=== PATIENT | female | born 1955 | race Caucasian/White ===

== ENCOUNTER 2021-07-13 09:43 | Emergency (ER) | payer MEDICARE, OTHER, SELFPAY ==
--- NOTE | ~2021-07-13 | CT_ITS ---
EXAMINATION: CT abdomen pelvis w con DATE: 07/13/2021 13:00 INDICATION: Sclerotic lesion in left parasymphyseal pubis. TECHNIQUE: Computed tomography (CT) of the abdomen and pelvis was performed with 100 mL Omnipaque 350 intravenous contrast. Automated exposure control and iterative reconstruction technique were employe d. The dose-length product was 957.81 mGy-cm. COMPARISON: Pelvis radiograph 07/13/2021 FINDINGS: The visualized portions of the lung bases demonstrate mild atelectasis. No pleural effusion . There are size is normal. There are coronary artery calcifications. No pericardial effusion. The li anju, spleen, pancreas, adrenal glands, and right kidney are normal. There are cysts in left kidney me asuring up to 9 mm. There is diverticulosis of the colon without evidence of diverticulitis. There ar e no dilated loops of bowel. The appendix is normal. There are no pathologically enlarged lymph nodes . There is no free intraperitoneal fluid. There is a 13 mm nonaggressive lytic lesion with sclerotic margin in right femoral neck, likely benign. There is sclerosis in left parasymphyseal pubis. There i s a lytic lesion with thickened septa in left parasymphyseal pubis superior to the sclerotic lesion, consistent with a hemangioma. There are multiple old healed anterior rib fractures bilaterally. IMPRESSION: 1. 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 Reviewed, dictated and finalized at location A. IMPRESSION: 1. 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
--- NOTE | ~2021-07-13 | XR_ITS ---
EXAMINATION: XR hip RT min 3V w AP pelvis DATE: 07/13/2021 12:05 INDICATION: Right hip pain. TECHNIQUE: An anteroposterior view of the pelvis and 3 views of right hip were obtained. COMPARISON: None. FINDINGS: Bone alignment is normal. No fracture. There is an 18 mm nonaggressive lytic lesion with sc lerotic margin in right femoral neck, likely a benign lesion such as fibrous dysplasia or an intraoss eous lipoma. There is sclerosis in left parasymphyseal pubis. There is mild osteoarthritis of the hip s. There is severe lower lumbar spondylosis. IMPRESSION: 1. Mild osteoarthritis of the hips. 2. Sclerosis in left parasymphyseal pubis, which may be asymmetric degenerative change (osteitis pubi s), a healing fracture, or metastatic disease. Consider pelvis CT or bone scan. Reviewed, dictated and finalized at location A. IMPRESSION: 1. Mild osteoarthritis of the hips. 2. Sclerosis in left parasymphyseal pubis, which may be asymmetric degenerative change (osteitis pubis), a healing fracture, or metastatic disease. Consider p sheba CT or bone scan.
[2021-07-13 09:56] VITALS: BP 141/92; PULSE 70; RESP 16; TEMP 36.6; O2SAT 97
[2021-07-13 11:18] VITALS: BP 148/80; PULSE 67; RESP 18; O2SAT 100
--- NOTE | 2021-07-13 11:41 | ED.EXTPRO ---
HPI - Extremity Problem General Chief complaint: Extremity Problem,Nontraumatic Stated complaint: hip pain Time Seen by Provider: 07/13/21 11:24 Source: patient History of Present Illness HPI Narrative: Patient presents with low back hip and knee pain. Patient for she has had pain for the past week and is progressively been getting worse so she came in for evaluation. Pain is achy, constant, worse with sitting upright and attempting to walk starts in her right lower back and radiates down to her right knee. Sure she has had back strains in the past but this feels more severe. She denies any numbness, tingling, or weakness. She denies any history of IV drug use or known cancer she she denies any major trauma denies any major change in weight she denies any loss of bowel or bladder control. Related Data Allergies Allergy/AdvReac Type Severity Reaction Status Date / Time Sulfa (Sulfonamide Allergy Unknown Verified 03/11/16 09:41 Antibiotics) sulfur dioxide Allergy Unknown Verified 12/20/11 14:12 Review of Systems Review of Systems: CONSTITUTIONAL: Denies fever, chills, or sweats. EYES: Denies visual changes, redness, or discharge. ENT: Denies rhinorrhea, congestion, sore throat, or otalgia. CARDIOVASCULAR: Denies chest pain, palpitations, or edema. RESPIRATORY: Denies cough or dyspnea. GASTROINTESTINAL: Denies abdominal pain, nausea, vomiting, or diarrhea. GENITOURINARY: Denies dysuria or hematuria. SKIN: Denies rash or itching. MUSCULOSKELETAL: Denies joint pain, or myalgia. NEUROLOGIC: Denies headache, numbness, dizziness, or weakness. PSYCHIATRIC: Denies anxiety or depression. All systems reviewed & are unremarkable except as noted in HPI and below PMFSH Social History Social History Smoking status: Never smoker Alcohol intake: never Exam Narrative: GENERAL: Well-appearing, well-nourished, and in no acute distress. HEAD: Normocephalic, atraumatic. EYES: PERRLA and EOMI. ENT: Nares clear, no rhinorrhea or epistaxis. Mucous membranes moist. NECK: Supple. No masses. No JVD Back: Diffuse tenderness to the right paraspinal lumbar area EXTREMITIES: Limited range of motion of the right hip due to pain there is diffuse tenderness on the hip there is no obvious deformity shortening or internal rotation. 5 out of 5 strength on dorsi/plantarflexion of the bilateral lower extremities sensation intact to light touch in the bilateral lower extremities. No edema. SKIN: Warm, dry, no rash. NEURO: No focal deficits. Alert and oriented x3. PSYCH: Normal mood and affect. Course Reevaluation(s) Reevaluation #1: Patient reports feeling improved results and plan reviewed with patient. Patient comfortable with outpatient plan. Date: 07/13/21 Time: 13:27 Vital Signs Vital signs: Vital Signs Temperature 36.6 C 07/13/21 09:56 Pulse Rate 70 07/13/21 09:56 Respiratory Rate 16 07/13/21 09:56 Blood Pressure 141/92 H 07/13/21 09:56 Pulse Oximetry 97 07/13/21 09:56 Temperature 36.6 C 07/13/21 09:56 Pulse Rate 67 07/13/21 11:18 Respiratory Rate 18 07/13/21 11:18 Blood Pressure 148/80 H 07/13/21 11:18 Pulse Oximetry 100 07/13/21 11:18 MDM - Extremity (Nontraumatic) MDM Narrative Medical decision making narrative: H&P as above, vss, pt looks clinically well, exam with out focal neurological deficits, imaging with arthritis otherwise clinically unremarkable additional labs/img considered, symptomatic relief available as needed, patient was treated with Toradol. On reevaluation pt continues to looks clinically well reports some improvement in symptoms. Suspect sciatica, dns cauda equina, conus medullaris, fracture, dislocation. plan to tx/monitor as op w/ pcm f/u findings/plan discussed with pt, pt agree/comfortable with plan, return precautions given Imaging Data Radiologist's impression: Impressions Hip/Pelvis X-Ray 07/13/21 12:06 IMPRESSI
[2021-07-13] MEDS: KETOROLAC 15 MG/ML VIAL (*BKC) IV PUSH (12:17)
[2021-07-21 10:44] LABS: Estimated CRCL calculation 94 ml/min; Estimated Glomerular Filt Rate > 60
== END 2021-07-13 13:53 | disposition home or self-care (01) ==
PROVIDERS: Emergency Provider Emergency Medicine; PCP Family Medicine Adolescent Medicine
DX: M54.41 Lumbago with sciatica, right side (principal)
CPT/HCPCS: 73502; 74177; 96374; 99284; J1885; Q9967

== ENCOUNTER 2021-09-14 11:09 | Outpatient (CLI) | payer MEDICARE, OTHER, SELFPAY ==
--- NOTE | ~2021-09-14 | XR_ITS ---
EXAMINATION: XR chest 2V DATE: 09/14/2021 11:36 INDICATION: Lumbar radiculopathy TECHNIQUE: PA and lateral views of the chest are obtained. COMPARISON: 07/03/2017 FINDINGS: The lungs are free of acute opacities. There is no pleural effusion or pneumothorax. The ca rdiomediastinal silhouette is normal. There is mild thoracic spondylosis. IMPRESSION: 1. No acute cardiopulmonary abnormality. Reviewed, dictated and finalized at location A.
== END 2021-09-14 11:10 | disposition home or self-care (01) ==
LOC: ANHIMG 11:19
PROVIDERS: PCP Family Medicine Adolescent Medicine; Visit Provider Family Medicine Adolescent Medicine
DX: M54.16 Radiculopathy, lumbar region (principal); Z01.818 Encounter for other preprocedural examination
CPT/HCPCS: 71046

== ENCOUNTER 2021-12-31 00:29 | Day surgery (SDC) | payer MEDICARE, OTHER, SELFPAY ==
[2021-12-17 15:16] VITALS: BMI 33.0
--- NOTE | 2021-12-30 09:09 | WPDANESEPPF ---
Anes - Initial Pre Proc Eval Procedure: Operation Date: 12/31/21 07:30 Proposed Procedures p Screening Colonoscopy - Tarun Mayes MD Date/Time: 12/30/21 09:09 Surgeon: Tarun Mayes MD Pre Op Diagnosis: hx of colon polyps Patient Data Age: 66 Gender: F Height: 1.57 m Weight: 82 kg Allergies Allergy/AdvReac Type Severity Reaction Status Date / Time Sulfa (Sulfonamide Allergy Unknown Other Verified 12/17/21 15:14 Antibiotics) Home Medications Medication Instructions Recorded Confirmed Type ibuprofen 800 mg PO Q6H PRN 12/17/21 12/17/21 History metformin 1,000 mg PO BID 12/17/21 12/17/21 History rosuvastatin 40 mg PO DAILY 12/17/21 12/17/21 History Patient hx anesthesia problems: none Family hx anesthesia problems: none Results Review: All pre-operative results and documents have been reviewed as part of the pre-operative evaluation. [facility] Past Medical History Medical History (Updated 12/30/21 @ 14:28 by Tarun Mayes MD) Anxiety Diabetes type 2, controlled Hyperlipidemia IBS (irritable bowel syndrome) Surgical History Surgical History (Updated 12/30/21 @ 09:10 by Chase Braxton DO) History of appendectomy History of cholecystectomy History of hysterectomy History of lumbar surgery 10/11 L3-4 discectomy Social History Social History Smoking status: Never smoker Alcohol intake: never Living arrangements: with family Spiritual care concerns: No Anes - Eval Final PreProcedure Day of Procedure 12/30/21 09:09 Patient weight: obese Heart: regular rate and rhythm Lungs: clear to auscultation and normal air movement Airway: Mallampati scale class II Neurological: alert and oriented Last oral intake: >/= 8 hours ASA classification: III Emergent: no Anesthetic plan: proceed Anesthesia type and monitoring: general GIVS and standard monitoring Results Review: All pre-operative results and documents have been reviewed as part of the pre-operative evaluation. Informed Consent: The patient's anesthetic plan and its attendant risks and benefits were discussed with the patient/family/POA. Questions were solicited and answers provided to the satisfaction of the patient/family/POA.
--- NOTE | 2021-12-30 14:27 | PM.HPGS ---
History of Present Illness History of Present Illness Consent: Risks, benefits, and alternatives have been discussed and questions answered. Patient agrees to proceed with procedure. Chief complaint: hx of colon polyps Narrative: Tessy Jones is a 66 year old female Her for Screening colonoscopy. she had polyps removed about 10 years ago. Review of Systems Review of Systems: All systems reviewed & are unremarkable except as noted in HPI and below PMFSH Past Medical History Medical History Anxiety Diabetes type 2, controlled Hyperlipidemia IBS (irritable bowel syndrome) Surgical History Surgical History History of appendectomy History of cholecystectomy History of hysterectomy History of lumbar surgery 10/11 L3-4 discectomy Social History Social History Smoking status: Never smoker Alcohol intake: never Living arrangements: with family Spiritual care concerns: No Meds Home Medications and Allergies Home Medications Medication Instructions Recorded Confirmed Type ibuprofen 800 mg PO Q6H PRN 12/17/21 12/31/21 History metformin 1,000 mg PO BID 12/17/21 12/31/21 History rosuvastatin 40 mg PO DAILY 12/17/21 12/31/21 History Allergies Allergy/AdvReac Type Severity Reaction Status Date / Time Sulfa (Sulfonamide Allergy Unknown Other Verified 12/17/21 15:14 Antibiotics) Exam Resp: Auscultation: clear to auscultation bilaterally Cardio: Rate: regular rate Rhythm: regular rhythm GI: GI Palp: Yes Soft to palpation and No Tenderness to palpation present (GI) Assessment and Plan Assessment and plan (1) Colon cancer screening: Code(s): Z12.11 - Encounter for screening for malignant neoplasm of colon Status: Acute Assessment and Plan: Colonoscopy with possible biopsy or polypectomy or cautery or injection of substances.
[2021-12-31 06:36] LABS: Glucose Point of Care 161 mg/dl (65-105)
[2021-12-31 06:37] VITALS: BP 142/67; PULSE 81; RESP 18; TEMP 36.8; O2SAT 98
[2021-12-31] MEDS: LACTATED RINGERS 1,000 ML 150 ML IV CONT (06:41)
[2021-12-31 07:47] VITALS: BP 123/70; PULSE 74; RESP 22; O2SAT 97
[2021-12-31 07:57] VITALS: BP 116/63; PULSE 73; RESP 20; O2SAT 99
[2021-12-31 08:06] VITALS: BP 125/80; PULSE 80; RESP 20; O2SAT 99
== END 2021-12-31 08:18 | disposition home or self-care (01) ==
PROVIDERS: PCP Family Medicine Adolescent Medicine; Visit Provider Internal Medicine Gastroenterology
PROC: 0DJD8ZZ Inspection of Lower Intestinal Tract, Via Natural or Artificial Opening Endoscopic (ICD-10-PCS; CPT 45378; principal; 2021-12-31 07:30)
DX: Z12.11 Encounter for screening for malignant neoplasm of colon (principal); K57.30 Diverticulosis of large intestine without perforation or abscess without bleeding; D12.5 Benign neoplasm of sigmoid colon; D12.8 Benign neoplasm of rectum; E11.9 Type 2 diabetes mellitus without complications; E78.5 Hyperlipidemia, unspecified; K58.9 Irritable bowel syndrome, unspecified; F41.9 Anxiety disorder, unspecified; Z79.84 Long term (current) use of oral hypoglycemic drugs; E66.9 Obesity, unspecified; Z68.33 Body mass index [BMI] 33.0-33.9, adult
CPT/HCPCS: 45385; 82948; 88305; J2704; J7120

== ENCOUNTER 2025-02-13 12:39 | Outpatient (CLI) | payer MEDICARE, OTHER, SELFPAY ==
--- OUTSIDE RECORDS SUMMARY | 2025-02-13 13:23 | XMS_ITS | Clinical Summary ---
Author Organization [facility] [employer] Address [address] [place] [address] Care Team Providers Care Seam Stay Stitcher Name Role Phone Gerardo Garcia MD Primary Care Provider + Source Comments [facility] Affiliates and Associated Physician Practices is amultiple site organization consisting of ambulatory clinics and hospital sitesin [place], [place], [place] and [place]. This disclosure is being madepursuant to the Care Everywhere program and may not contain all information available regarding this patient. Last updated 18.[facility] [employer] Allergies Active Allergy Reactions Criticality Noted Date Comments Sulfa Drugs 10/07/2016 Medications * Be aware that medications may not be up to date on this document. Alwaysverify current medications with the patient. Medication Sig Dispensed Refills Start Date End Date Status Atorvastatin Calcium (LIPITOR PO) Active Montelukast Sodium (SINGULAIR PO) Active Social History Tobacco Use Types Packs/Day Years Used Date Smoking Tobacco: Never Sex and Gender Information Value Date Recorded Sex Assigned at Not on file Gender Identity Not on file Sexual Orientation Not on file Last Filed Vital Signs Vital Sign Reading Time Taken Comments Blood Pressure 124/80 10/07/2016 9:16 AM ATTRACTION ATTENDANT Pulse 77 10/07/2016 9:16 AM ATTRACTION ATTENDANT Temperature 36.8 C (98.2 F) 10/07/2016 9:16 AM ATTRACTION ATTENDANT Respiratory Rate 18 10/07/2016 9:16 AM ATTRACTION ATTENDANT Oxygen Saturation - - Inhaled Oxygen Concentration - - Weight 90.7 kg (200 lb) 10/07/2016 9:16 AM ATTRACTION ATTENDANT Height 157.5 cm (5' 2 ) 10/07/2016 9:16 AM ATTRACTION ATTENDANT Body Mass Index 36.58 10/07/2016 9:16 AM ATTRACTION ATTENDANT Plan of Treatment Health Maintenance Due Date Last Done Comments BONE DENSITY TESTING 1954 COLOGUARD (AGES 45-75) - COL ON CA SCREENING 1954 COLON MONITORING 1954 COLONOSCOPY - COLON CA SCREENING 1954 CT COLONOGRAPHY - COLON CA SCREENING 1954 Colorectal Cancer Screening 1954 FIT - COLON CA SCREENING 1954 FLEX SIG - COLON CA SCREENING 1954 MAMMOGRAM 1954 MEDICARE AWV 12 MONTHS 1954 HEPATITIS C SCREENING 11/17/1972 DTAP/TDAP/TD VACCINES (1 - Tdap) 1973 PNEUMOCOCCAL VACCINE 50+ (1 of 1 - PCV) 2004 ZOSTER VACCINE (1 of 2) 2004 COVID-19 VACCINE (1 - 2023-2 5 season) 2024 INFLUENZA VACCINE (#1) 2024 DEPRESSION SCREENING 11/20/2024 Respiratory Syncytial Virus (RSV) Vaccine Pt: or over 60 yrs (1 - 1-dose 75+ series) 2029 HEPATITIS B VACCINE Aged Out No longe r eligible based on patient's age to complete this topic HIB VACCINE Aged Out No longer eligi ble based on patient's age to complete this topic HPV VACCINE Aged Out No longer eligi ble based on patient's age to complete this topic MENINGOCOCCAL (Group B) VACC INE SHARED DECISION-MAKING Aged Out No longer eligibl e based on patient's age to complete this topic MENINGOCOCCAL GROUPS A/C/Y/W VACCINE Aged Out No longer eligible b ased on patient's age to complete this topic Care Teams Seam Stay Stitcher Relationship Specialty Start Date End Date Gerardo Garcia MD [phone] [address] PCP - General 01/04/22
== END 2025-02-13 12:40 | disposition home or self-care (01) ==
LOC: ANHAUDIO 12:40
PROVIDERS: PCP Family Medicine Adolescent Medicine; Visit Provider Family Medicine
DX: H90.3 Sensorineural hearing loss, bilateral (principal)
CPT/HCPCS: 92557; 92567